=== PATIENT | female | born 2000 | race African-American/Black ===

== ENCOUNTER 2021-07-23 09:50 | Emergency (ER) | payer BC, OTHER ==
[2021-07-23] MEDS ORDERED: HYDROcodone/Acetaminophen 5/325 mg Tablet ONE (10:12)
[2021-07-23] MEDS ORDERED: Boostrix 0.5 ML (Tdap) VIAL ONE (10:13)
== END 2021-07-23 11:29 ==
LOC: CSHERS 09:50
DX: S50.02XA Contusion of left elbow, initial encounter (principal); S60.212A Contusion of left wrist, initial encounter; S60.415A Abrasion of left ring finger, initial encounter; V89.2XXA Person injured in unspecified motor-vehicle accident, traffic, initial encounter; Z23 Encounter for immunization
CPT/HCPCS: 90471; 90715

== ENCOUNTER 2022-12-23 13:11 | Emergency (ER) | payer OTHER ==
[2022-12-23] MEDS ORDERED: Morphine 4 MG/ML VIAL ONE ×2 (14:38→16:08)
[2022-12-23 14:41] LABS: #Monocytes 0.6 10x3/uL (0.0-1.1); #Neutrophils 5.1 10x3/uL (1.5-8.4); %Basophils 0.3 % (0.0-2.0); %Eosinophils 0.5 % (0.0-6.0); %Lymphocytes 11.8 % (18.0-47.0); %Monocytes 8.7 % (0.0-10.0); %Neutrophils 78.5 % (40.0-75.0); Hemoglobin 11.2 g/dL (12.0-15.5); Mean Corpuscular HGB CONC 32.4 g/dL (32.0-36.0); Mean Corpuscular Volume 77.2 fl (81.6-98.3); Mean Platelet Volume 9.6 fl (7.4-10.4); Platelet Count 348 10x3/uL (150-450); RBC Distribution Width 18.6 % (11.5-14.5); Red Blood Cell (RBC) Count 4.48 10x6/uL (3.90-5.03); White Blood Cell (WBC) Count 6.5 10x3/uL (3.5-10.5)
[2022-12-23 14:54] LABS: ALT (SGPT) 14 U/L (8-55); AST (SGOT) 19 U/L (5-34); Albumin 4.1 g/dL (3.5-5.0); Alkaline Phosphatase 68 U/L (40-110); Anion Gap 10 mmol/L (10-20); BUN (Urea Nitrogen) 14 mg/dL (7.0-18.7); Bilirubin, Total 0.2 mg/dL (0.2-1.2); Calc. Creatinine Clearance 0 mL/min (70-130); Calcium 9.1 mg/dL (7.8-10.44); Carbon Dioxide 26 mmol/L (22-29); Chloride 104 mmol/L (98-107); Estimated GFR 110; Globulin 3.7 g/dL (2.4-3.5); Glucose 81 mg/dL (70-105); Potassium 3.9 mmol/L (3.5-5.1); Protein, Total 7.8 g/dL (6.0-8.3); Sodium 136 mmol/L (136-145)
[2022-12-23 15:15] LABS: BHCG - Serum Negative (NEGATIVE); Pregs Control Background? CLEAR/WHITE (CLR/WHITE); Pregs Control Bar Appear? YES (CONTROL BAR)
[2022-12-23] MEDS ORDERED: Ketorolac Tromethamine 30 MG/ML VIAL ONE (16:08)
== END 2022-12-23 16:00 | disposition home or self-care (01) ==
LOC: CSHERS 13:11
DX: R07.9 Chest pain, unspecified (principal)
CPT/HCPCS: 71045; 71275; 80053; 84484; 84703; 85025; 85379; 93005; 96374; 96375; 96376; J1885; J2270

== ENCOUNTER 2023-02-12 18:43 | Emergency (ER) | payer SELFPAY ==
[2023-02-12] MEDS ORDERED: methylPREDNISolone Sod Succ/PF 125 MG/2 ML VIAL ONE (20:16)
[2023-02-12] MEDS ORDERED: Ketorolac Tromethamine 30 MG/ML VIAL ONE (20:16)
[2023-02-12 20:42] LABS: Bilirubin Neg (Negative); Blood, Urine 50 (Negative); Clarity Clear (Clear); Glucose, Urine (Dipstick) Normal (Negative); Ketone, Urine Negative (Negative); Leukocyte Negative (Negative); Nitrite Negative (Negative); Protein, Urine (Dipstick) 15 mg/dl (Neg-Trace)
[2023-02-12 21:04] LABS: Potassium 3.7 mmol/L (3.5-5.1); Sodium 134 mmol/L (136-145)
[2023-02-12 21:05] LABS: ALT (SGPT) 12 U/L (8-55); AST (SGOT) 39 U/L (5-34); Albumin 3.4 g/dL (3.5-5.0); Alkaline Phosphatase 53 U/L (40-110); Anion Gap 16 mmol/L (10-20); BUN (Urea Nitrogen) 6 mg/dL (7.0-18.7); Bilirubin, Total 0.5 mg/dL (0.2-1.2); Calc. Creatinine Clearance 0 mL/min (70-130); Calcium 8.8 mg/dL (7.8-10.44); Carbon Dioxide 20 mmol/L (22-29); Chloride 102 mmol/L (98-107); Estimated GFR 126; Globulin 4.3 g/dL (2.4-3.5); Glucose 96 mg/dL (70-105); Protein, Total 7.7 g/dL (6.0-8.3)
[2023-02-12 21:10] LABS: CAUTI Indications for Culture Pelvic or flank pain
[2023-02-12 21:11] LABS: Bacteria/HPF Rare-Few HPF (None Seen); RBC/HPF 0-3 HPF (0-3); Squamous Epithelial 0-3 HPF (0-3); WBC/HPF 0-3 HPF (0-3)
[2023-02-12 21:13] LABS: Urine Culture Reflex No No
[2023-02-12 21:21] LABS: BHCG - Serum Negative (NEGATIVE); Pregs Control Background? CLEAR/WHITE (CLR/WHITE); Pregs Control Bar Appear? YES (CONTROL BAR)
[2023-02-12 21:29] LABS: #Monocytes 0.1 10x3/uL (0.0-1.1); %Basophils 0.3 % (0.0-2.0); %Eosinophils 0.3 % (0.0-6.0); %Lymphocytes 13.7 % (18.0-47.0); %Monocytes 3.6 % (0.0-10.0); %Neutrophils 82.1 % (40.0-75.0); Hematocrit 36.6 % (34.9-44.5); Hemoglobin 11.8 g/dL (12.0-15.5); Mean Corpuscular HGB CONC 32.2 g/dL (32.0-36.0); Mean Corpuscular Hemoglobin 24.6 pg (27.0-33.0); Mean Corpuscular Volume 76.4 fl (81.6-98.3); Mean Platelet Volume 8.9 fl (7.4-10.4); Platelet Count 543 10x3/uL (150-450); RBC Distribution Width 17.5 % (11.5-14.5); Red Blood Cell (RBC) Count 4.79 10x6/uL (3.90-5.03); White Blood Cell (WBC) Count 3.7 10x3/uL (3.5-10.5)
[2023-02-12 22:52] LABS: SARS-CoV-2 NAA Rapid Test Not Detected (NotDetected)
== END 2023-02-12 23:20 | disposition home or self-care (01) ==
LOC: CSHERS 18:43
DX: M32.9 Systemic lupus erythematosus, unspecified (principal); K12.0 Recurrent oral aphthae; M79.10 Myalgia, unspecified site; Z20.822 Contact with and (suspected) exposure to COVID-19
CPT/HCPCS: 81001; 84703; 86140; 93005; 96374; 96375; J1885; J2930

== ENCOUNTER 2023-02-15 08:17 | Emergency (ER) | payer SELFPAY ==
[2023-02-15] MEDS ORDERED: methylPREDNISolone Sod Succ/PF 125 MG/2 ML VIAL ONE (09:26)
[2023-02-15] MEDS ORDERED: Ketorolac Tromethamine 30 MG/ML VIAL ONE (09:26)
== END 2023-02-15 11:15 | disposition home or self-care (01) ==
LOC: CSHERS 08:17
DX: M32.9 Systemic lupus erythematosus, unspecified (principal)
CPT/HCPCS: 96372; J1885; J2930